=== PATIENT | male | born 1970 | race African-American/Black ===

== ENCOUNTER 2019-02-07 12:24 | Inpatient (IN) | payer OTHER ==
[2019-02-07] MEDS ORDERED: MAGNESIUM HYDROX 2400MG/30ML ORAL SUSPENSION 30 ML CUP PO PRN (15:35)
[2019-02-07] MEDS ORDERED: MAG HYDROX/AL HYDROX/SIMETH 30 ML UNIT-DOSE CUP PO PRN (15:35)
[2019-02-07] MEDS ORDERED: BISMUTH SUBSALICYLATE 524 MG/30 ML UD PO PRN (15:35)
[2019-02-07] MEDS ORDERED: NICOTINE POLACRILEX 2 MG GUM BUC PRN (15:35)
[2019-02-07] MEDS ORDERED: MENTHOL/PHENOL 1 EACH UD MM PRN (15:35)
[2019-02-07] MEDS ORDERED: ACETAMINOPHEN 325 MG TABLET (FP) PO PRN (15:35)
[2019-02-07] MEDS ORDERED: METHOCARBAMOL 500 MG TABLET PO PRN (15:35)
[2019-02-07] MEDS ORDERED: MAGNESIUM CITRATE 300 ML BOTTLE PO PRN (15:35)
[2019-02-07] MEDS ORDERED: hydrOXYzine PAMOATE 25 MG CAPSULE (FP) PO PRN (15:35)
[2019-02-07] MEDS ORDERED: IBUPROFEN 400 MG TABLET (FP) PO PRN (15:35)
--- NOTE | 2019-02-07 15:35 | HP ---
CIWA Score Nausea/Vomitin Muscle Tremors: 1-None Visible, but [place] Anxiety: 2 Agitation: 0-Normal Activity Paroxysmal Sweats: 1-Minimal Palms Moist Orientation: 0-Oriented Tacttile Disturbances: 1-Very Mild Itch/Numbness Auditory Disturbances: 0-None Visual Disturbances: 2-Mild Sensitivity Headache: 2-Mild CIWA-Ar Total Score: 12 - Admission Criteria OASAS Guidelines: Admission for Medically Managed Detox: Requires at least one of the followin. CIWA greater than 12 2. Seizures within the past 24 hours 3. Delirium tremens within the past 24 hours 4. Hallucinations within the past 24 hours 5. Acute intervention needed for co occurring medical disorder 6. Acute intervention needed for co occurring psychiatric disorder 7. Severe withdrawal that cannot be handled at a lower level of care (continued vomiting, continued diarrhea, abnormal vital signs) requiring intravenous medication and/or fluids 8. Patient presents the following: CIWA greater than 12 Admission Criteria Met: Admission criteria met Admission ROS S - HPI Chief Complaint: alcohol withdrawal symptoms Allergies/Adverse Reactions: Allergies Allergy/AdvReac Type Severity Reaction Status Date / Time Penicillins Allergy Intermediate Rash Verified 02/07/19 13:38 History of Present Illness: Patient is a 48 yo male with hx of marijuana, cocaine and alcohol dependence is here for detox, patient was referred from Health system today. Patient was at [facility] 02/05/19 - 02/07/19 d/t auditory hallucinations, reports hx of bipolar and non-compliance with medications. PMHX: Anemia, bilateral glaucoma. Denies hx of seizures, reports hx of frequent ETOH black outs. Reports three years of sobriety with and relapsed six months ago. Last detox [facility] one month ago. Exam Limitations: No Limitations - Ebola screening Have you traveled outside of the country in the last 21 days: No (N) Have you had contact with anyone from an Ebola affected area: No Do you have a fever: No - Review of Systems Constitutional: Chills, Loss of Appetite, Changes in sleep EENT: reports: See HPI Respiratory: reports: Cough (x 1 week) Cardiac: reports: Palpitations GI: reports: Nausea, Poor Appetite, Vomiting : reports: No Symptoms Reported Musculoskeletal: reports: Back Pain Integumentary: reports: Dryness Neuro: reports: Headache Endocrine: reports: No Symptoms Reported Hematology: reports: Anemia Psychiatric: reports: Orientated x3, Anxious Other Systems: Reviewed and Negative Patient History - Patient Medical History Hx Anemia: Yes Hx Asthma: No Hx Chronic Obstructive Pulmonary Disease (COPD): No Hx Cancer: No Hx Cardiac Disorders: No Hx Congestive Heart Failure: No Hx Hypertension: No Hx Hypercholesterolemia: No Hx Pacemaker: No HX Cerebrovascular Accident: No Hx Seizures: No Hx Dementia: No Hx Diabetes: No Hx Gastrointestinal Disorders: No Hx Liver Disease: No Hx Genitourinary Disorders: No Hx Sexually Transmitted Disorders: Yes (Syphilis treated at 23 yo at [facility] ) Hx Renal Disease (ESRD): No Hx Thyroid Disease: No Hx Human Immunodeficiency Virus (HIV): No Hx Hepatitis C: No Hx Depression: No Hx Suicide Attempt: No Hx Bipolar Disorder: Yes Hx Schizophrenia: No - Patient Surgical History Past Surgical History: Yes Hx Neurologic Surgery: No Hx Cataract Extraction: No Hx Cardiac Surgery: No Hx Lung Surgery: No Hx Breast Surgery: No Hx Breast Biopsy: No Hx Abdominal Surgery: Yes (PERFORATED ULCER SX IN 2009) Hx Appendectomy: No Hx Cholecystectomy: No Hx Genitourinary Surgery: No Hx Section: No Hx Orthopedic Surgery: No Anesthesia Reaction: No - PPD History Previous Implant?: Yes Documented Results: Positive w/o proof PPD to be Administered?: No - Smoking Cessation Smoking history: Current every day smoker Have you smoked in the past 12 months: Yes Aproximately how many cigarettes per day: 10 Cigars Per Day: 0 Hx Chewing Tobacco Use: No Initiated information on smoking cessation: Yes 'Breaking Loose' booklet given: 02/07/19 - Substance & Tx. History Hx Alcohol Use: Yes Hx Substance Use: No Substance Use Type: Alcohol, Cocaine, Marijuana Hx Substance Use Treatment: Yes ([facility] one month ago) - Substances abused Alcohol Substance route: Inhalation Frequency: Daily Amount used: 1 PINT OF VODKA Age of first use: 13 Date of last use: 02/05/19 Cocaine Substance route: Smoking Frequency: Daily Amount used: $100 Age of first use: 21 Date of last use: 02/05/19 Marijuana/Hashish Substance route: Smoking Frequency: Daily Amount used: $50 Age of first use: 13 Date of last use: 02/05/19 Family Disease History - Family Disease History Family Disease History: Heart Disease: Father () Admission Physical Exam [facility] - Vital Signs Vital Signs: Vital Signs - 24 hr 02/07/19 13:33 Temperature 97.7 F Pulse Rate 69 Respiratory 19 Rate Blood Pressure 115/73 - Physical General Appearance: Yes: Appropriately Dressed, Thin, Sweating, Anxious HEENTM: Yes: EOMI, Hearing grossly Normal, Normal ENT Inspection, Normocephalic , Normal Voice, KAUSHIK, Pharynx Normal, Tm's normal Respiratory: Yes: Chest Non-Tender, Lungs Clear, Normal Breath Sounds, No Respiratory Distress, No Accessory Muscle Use Neck: Yes: Within Normal Limits Breast: Yes: Breast Exam Deferred Cardiology: Yes: Regular Rhythm, Regular Rate Abdominal: Yes: Normal Bowel Sounds, Non Tender, Flat Genitourinary: Yes: Within Normal Limits Back: Yes: Normal Inspection Musculoskeletal: Yes: full range of Motion, Gait Steady, Pelvis Stable, Back pain Extremities: Yes: Normal Capillary Refill, Normal Inspection, Normal Range of Motion, Non-Tender Neurological: Yes: montessori paraprofessional II-XII NML intact, Fully Oriented, Alert, Motor Strength 5/5 Integumentary: Yes: Normal Color, Warm, Diaphoresis Lymphatic: Yes: Within Normal Limits - Diagnostic (1) Cannabis dependence Current Visit: Yes Status: Acute (2) Back pain Current Visit: Yes Status: Acute Qualifiers: Back pain location: low back pain (3) Psychiatric disorder Current Visit: Yes Status: Suspected (4) Cocaine dependence Current Visit: Yes Status: Active (5) Alcohol dependence with withdrawal Current Visit: Yes Status: Acute Qualifiers: Complication of substance-induced condition: uncomplicated Qualified Code(s ): F10.230 - Alcohol dependence with withdrawal, uncomplicated (6) Nicotine dependence Current Visit: Yes Status: Acute Qualifiers: Nicotine product type: cigarettes (7) Glaucoma Current Visit: Yes Status: Chronic Cleared for Admission [facility] - Detox or Rehab [facility] Level of Care: Medically Managed Detox Regimen/Protocol: Librium Breathalyzer - Breathalyzer Breathalyzer: 0 Urine Drug Screen - Test Device Lot number: [id number] Expiration date: 11/02/20 - Control Is test valid?: Yes - Results Drug screen NEGATIVE: No Urine drug screen results: BZO-Benzodiazepines Inpatient Rehab Admission - Rehab Decision to Admit Inpatient rehab admission?: No
[2019-02-07] MEDS ORDERED: chlordiazePOXIDE HCL 25 MG CAPSULE PO PRN (15:46)
[2019-02-07 16:37] LABS: ALBUMIN 3.6 g/dl (3.4-5.0); BILIRUBIN,TOTAL 0.3 mg/dL (0.2-1); CALCIUM 9.3 mg/dL (8.5-10.1); CREATININE 1.2 mg/dL (0.55-1.3); POTASSIUM 4.4 mmol/L (3.5-5.1); TOT PROT 7.4 g/dl (6.4-8.2)
[2019-02-07 16:41] LABS: HEMATOCRIT 44.5 % (35.4-49); HEMOGLOBIN 14.6 GM/dL (11.7-16.9); MCH 30.1 pg (25.7-33.7); MCHC 32.8 g/dl (32.0-35.9); MEAN CELL VOLUME 91.9 fl (80-96); MEAN PLT VOLUME 9.2 fl (7.5-11.1); PLATELET COUNT 172 K/MM3 (134-434); RBC 4.84 M/mm3 (4.00-5.60); RDW 14.4 % (11.9-15.9); WHITE BLOOD COUNT 5.1 K/mm3 (4.0-10.0)
[2019-02-07] MEDS: TIMOLOL 0.5% OPHTHALMIC SOL 5 ML BOTTLE OU SCH (21:13)
[2019-02-07] MEDS: THIAMINE HCL 100 MG TABLET (FP) PO SCH (21:13)
[2019-02-07] MEDS: DORZOLAMIDE 2% HCL OPHTHALMIC SOLUTION 10 ML BOTTLE OU SCH (21:13)
[2019-02-07] MEDS: BRIMONIDINE TARTRATE 0.1% OPHTHALMIC 5 ML BOTTLE OU SCH (21:13)
[2019-02-07] MEDS ORDERED: PATIENT'S OWN MEDICATION (NON-FORMULARY) (Dorzolamide Hcl/Timolol Maleat [Cosopt Eye Drops OU SCH (22:00)
[2019-02-07] MEDS ORDERED: chlordiazePOXIDE HCL 25 MG CAPSULE PO SCH (23:00)
[2019-02-07] MEDS: LATANOPROST 0.005% OPHTH SOLN 2.5ML BOTTLE OU SCH (23:11)
[2019-02-08] MEDS: BRIMONIDINE TARTRATE 0.1% OPHTHALMIC 5 ML BOTTLE OU SCH ×3 (07:42→21:58)
[2019-02-08] MEDS: NICOTINE 14 MG/24 HOURS TOPICAL PATCH TD SCH (09:41)
[2019-02-08] MEDS: PRENATAL VITAMINS W/ FOLIC ACID TABLET (FP) PO SCH (09:42)
[2019-02-08] MEDS: TIMOLOL 0.5% OPHTHALMIC SOL 5 ML BOTTLE OU SCH ×2 (09:43→21:58)
[2019-02-08] MEDS: DORZOLAMIDE 2% HCL OPHTHALMIC SOLUTION 10 ML BOTTLE OU SCH ×2 (09:46→21:58)
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
--- NOTE | 2019-02-08 15:40 | EKG ---
Test Reason : Blood Pressure : / mmHG Vent. Rate : 061 BPM Atrial Rate : 061 BPM P-R Int : 156 ms QRS Dur : 088 ms QT Int : 378 ms P-R-T Axes : 067 069 063 degrees QTc Int : 380 ms SINUS RHYTHM WITH SINUS ARRHYTHMIA WITH OCCASIONAL PREMATURE VENTRICULAR COMPLEXES OTHERWISE NORMAL ECG NO PREVIOUS ECGS AVAILABLE Confirmed by DARON BLAIR MD ([id number]) on 02/08/2019 3:40:10 PM Referred By: Confirmed By:DARON BLAIR MD
[2019-02-08] MEDS: ARIPiprazole 10 MG TABLET PO SCH (16:34)
[2019-02-08] MEDS: BENZTROPINE MESYLATE 1 MG TABLET (FP) PO SCH (16:34)
[2019-02-08 19:14] LABS: URINE APPEARANCE CLEAR; URINE BILIRUBIN NEGATIVE (NEGATIVE); URINE COLOR YELLOW; URINE GLUCOSE (UA) NEGATIVE (NEGATIVE); URINE KETONE NEGATIVE (NEGATIVE); URINE LEUK ESTERASE NEGATIVE (NEGATIVE); URINE NITRITE NEGATIVE (NEGATIVE); URINE PROTEIN NEGATIVE (NEGATIVE); URINE UROBILINOGEN 0.2 mg/dL (0.2-1.0)
[2019-02-08] MEDS: DIVALPROEX SODIUM 500 MG TABLET E.C. PO SCH (21:57)
[2019-02-08] MEDS: THIAMINE HCL 100 MG TABLET (FP) PO SCH (21:57)
[2019-02-08] MEDS: LATANOPROST 0.005% OPHTH SOLN 2.5ML BOTTLE OU SCH (21:59)
[2019-02-08] MEDS ORDERED: chlordiazePOXIDE HCL 25 MG CAPSULE PO SCH (23:00)
[2019-02-09] MEDS: BRIMONIDINE TARTRATE 0.1% OPHTHALMIC 5 ML BOTTLE OU SCH ×3 (06:39→21:18)
[2019-02-09] MEDS: PRENATAL VITAMINS W/ FOLIC ACID TABLET (FP) PO SCH (10:10)
[2019-02-09] MEDS: BENZTROPINE MESYLATE 1 MG TABLET (FP) PO SCH (10:11)
[2019-02-09] MEDS: DORZOLAMIDE 2% HCL OPHTHALMIC SOLUTION 10 ML BOTTLE OU SCH ×2 (10:11→21:18)
[2019-02-09] MEDS: ARIPiprazole 10 MG TABLET PO SCH (10:11)
[2019-02-09] MEDS: DIVALPROEX SODIUM 500 MG TABLET E.C. PO SCH ×2 (10:11→21:17)
[2019-02-09] MEDS: TIMOLOL 0.5% OPHTHALMIC SOL 5 ML BOTTLE OU SCH ×2 (10:12→21:17)
[2019-02-09] MEDS: NICOTINE 14 MG/24 HOURS TOPICAL PATCH TD SCH (10:13)
[2019-02-09] MEDS: ACETAMINOPHEN 325 MG TABLET (FP) PO PRN (10:15)
[2019-02-09] MEDS: THIAMINE HCL 100 MG TABLET (FP) PO SCH (21:17)
[2019-02-09] MEDS: LATANOPROST 0.005% OPHTH SOLN 2.5ML BOTTLE OU SCH (21:18)
[2019-02-09] MEDS ORDERED: chlordiazePOXIDE HCL 10 MG CAPSULE PO SCH (23:00)
[2019-02-09] MEDS ORDERED: chlordiazePOXIDE HCL 10 MG CAPSULE PO PRN (23:00)
[2019-02-10] MEDS: BRIMONIDINE TARTRATE 0.1% OPHTHALMIC 5 ML BOTTLE OU SCH ×3 (06:13→21:28)
[2019-02-10] MEDS: BENZTROPINE MESYLATE 1 MG TABLET (FP) PO SCH (09:51)
[2019-02-10] MEDS: DIVALPROEX SODIUM 500 MG TABLET E.C. PO SCH ×2 (09:52→21:27)
[2019-02-10] MEDS: TIMOLOL 0.5% OPHTHALMIC SOL 5 ML BOTTLE OU SCH ×2 (09:52→21:28)
[2019-02-10] MEDS: PRENATAL VITAMINS W/ FOLIC ACID TABLET (FP) PO SCH (09:52)
[2019-02-10] MEDS: ARIPiprazole 10 MG TABLET PO SCH (09:52)
[2019-02-10] MEDS: DORZOLAMIDE 2% HCL OPHTHALMIC SOLUTION 10 ML BOTTLE OU SCH ×2 (09:52→21:27)
[2019-02-10] MEDS: NICOTINE 14 MG/24 HOURS TOPICAL PATCH TD SCH (09:52)
[2019-02-10] MEDS: LATANOPROST 0.005% OPHTH SOLN 2.5ML BOTTLE OU SCH (21:27)
[2019-02-10] MEDS: THIAMINE HCL 100 MG TABLET (FP) PO SCH (21:27)
[2019-02-10] MEDS: ACETAMINOPHEN 325 MG TABLET (FP) PO PRN (21:28)
[2019-02-10] MEDS ORDERED: chlordiazePOXIDE HCL 10 MG CAPSULE PO SCH (23:00)
[2019-02-11] MEDS: BRIMONIDINE TARTRATE 0.1% OPHTHALMIC 5 ML BOTTLE OU SCH ×3 (06:52→21:14)
[2019-02-11] MEDS: DIVALPROEX SODIUM 500 MG TABLET E.C. PO SCH ×2 (09:43→21:14)
[2019-02-11] MEDS: DORZOLAMIDE 2% HCL OPHTHALMIC SOLUTION 10 ML BOTTLE OU SCH ×2 (09:43→21:14)
[2019-02-11] MEDS: PRENATAL VITAMINS W/ FOLIC ACID TABLET (FP) PO SCH (09:43)
[2019-02-11] MEDS: ARIPiprazole 10 MG TABLET PO SCH (09:43)
[2019-02-11] MEDS: BENZTROPINE MESYLATE 1 MG TABLET (FP) PO SCH (09:43)
[2019-02-11] MEDS: TIMOLOL 0.5% OPHTHALMIC SOL 5 ML BOTTLE OU SCH ×2 (09:43→21:14)
[2019-02-11] MEDS: NICOTINE 14 MG/24 HOURS TOPICAL PATCH TD SCH (09:44)
[2019-02-11] MEDS: THIAMINE HCL 100 MG TABLET (FP) PO SCH (21:14)
[2019-02-11] MEDS: LATANOPROST 0.005% OPHTH SOLN 2.5ML BOTTLE OU SCH (21:14)
[2019-02-11] MEDS: MELATONIN 5 MG TABLETS PO PRN (21:15)
[2019-02-12] MEDS: BRIMONIDINE TARTRATE 0.1% OPHTHALMIC 5 ML BOTTLE OU SCH ×3 (06:00→21:12)
[2019-02-12] MEDS: DORZOLAMIDE 2% HCL OPHTHALMIC SOLUTION 10 ML BOTTLE OU SCH ×2 (10:01→21:12)
[2019-02-12] MEDS: PRENATAL VITAMINS W/ FOLIC ACID TABLET (FP) PO SCH (10:01)
[2019-02-12] MEDS: TIMOLOL 0.5% OPHTHALMIC SOL 5 ML BOTTLE OU SCH ×2 (10:01→21:12)
[2019-02-12] MEDS: ARIPiprazole 10 MG TABLET PO SCH (10:01)
[2019-02-12] MEDS: NICOTINE 14 MG/24 HOURS TOPICAL PATCH TD SCH (10:01)
[2019-02-12] MEDS: DIVALPROEX SODIUM 500 MG TABLET E.C. PO SCH ×2 (10:01→21:11)
[2019-02-12] MEDS: BENZTROPINE MESYLATE 1 MG TABLET (FP) PO SCH (10:02)
[2019-02-12] MEDS: THIAMINE HCL 100 MG TABLET (FP) PO SCH (21:11)
[2019-02-12] MEDS: LATANOPROST 0.005% OPHTH SOLN 2.5ML BOTTLE OU SCH (21:11)
[2019-02-13] MEDS: BRIMONIDINE TARTRATE 0.1% OPHTHALMIC 5 ML BOTTLE OU SCH ×3 (07:25→21:15)
[2019-02-13] MEDS: TIMOLOL 0.5% OPHTHALMIC SOL 5 ML BOTTLE OU SCH ×2 (10:24→21:15)
[2019-02-13] MEDS: DORZOLAMIDE 2% HCL OPHTHALMIC SOLUTION 10 ML BOTTLE OU SCH ×2 (10:24→21:15)
[2019-02-13] MEDS: ARIPiprazole 10 MG TABLET PO SCH (10:24)
[2019-02-13] MEDS: PRENATAL VITAMINS W/ FOLIC ACID TABLET (FP) PO SCH (10:24)
[2019-02-13] MEDS: NICOTINE 14 MG/24 HOURS TOPICAL PATCH TD SCH (10:24)
[2019-02-13] MEDS: DIVALPROEX SODIUM 500 MG TABLET E.C. PO SCH ×2 (10:24→21:14)
[2019-02-13] MEDS: BENZTROPINE MESYLATE 1 MG TABLET (FP) PO SCH (10:24)
[2019-02-13] MEDS: MELATONIN 5 MG TABLETS PO PRN (21:14)
[2019-02-13] MEDS: THIAMINE HCL 100 MG TABLET (FP) PO SCH (21:14)
[2019-02-13] MEDS: LATANOPROST 0.005% OPHTH SOLN 2.5ML BOTTLE OU SCH (21:15)
[2019-02-14] MEDS: BRIMONIDINE TARTRATE 0.1% OPHTHALMIC 5 ML BOTTLE OU SCH ×3 (07:53→21:11)
[2019-02-14] MEDS: TIMOLOL 0.5% OPHTHALMIC SOL 5 ML BOTTLE OU SCH ×2 (09:47→21:11)
[2019-02-14] MEDS: DORZOLAMIDE 2% HCL OPHTHALMIC SOLUTION 10 ML BOTTLE OU SCH ×2 (09:47→21:11)
[2019-02-14] MEDS: PRENATAL VITAMINS W/ FOLIC ACID TABLET (FP) PO SCH (09:48)
[2019-02-14] MEDS: BENZTROPINE MESYLATE 1 MG TABLET (FP) PO SCH (09:48)
[2019-02-14] MEDS: ARIPiprazole 10 MG TABLET PO SCH (09:48)
[2019-02-14] MEDS: DIVALPROEX SODIUM 500 MG TABLET E.C. PO SCH ×2 (09:48→21:10)
[2019-02-14] MEDS: NICOTINE 14 MG/24 HOURS TOPICAL PATCH TD SCH (09:49)
[2019-02-14] MEDS: THIAMINE HCL 100 MG TABLET (FP) PO SCH (21:10)
[2019-02-14] MEDS: LATANOPROST 0.005% OPHTH SOLN 2.5ML BOTTLE OU SCH (21:10)
[2019-02-14] MEDS: MELATONIN 5 MG TABLETS PO PRN (21:11)
[2019-02-15] MEDS: BRIMONIDINE TARTRATE 0.1% OPHTHALMIC 5 ML BOTTLE OU SCH ×3 (06:39→21:19)
[2019-02-15] MEDS: PRENATAL VITAMINS W/ FOLIC ACID TABLET (FP) PO SCH (10:07)
[2019-02-15] MEDS: BENZTROPINE MESYLATE 1 MG TABLET (FP) PO SCH (10:07)
[2019-02-15] MEDS: ARIPiprazole 10 MG TABLET PO SCH (10:07)
[2019-02-15] MEDS: DORZOLAMIDE 2% HCL OPHTHALMIC SOLUTION 10 ML BOTTLE OU SCH ×2 (10:07→21:19)
[2019-02-15] MEDS: DIVALPROEX SODIUM 500 MG TABLET E.C. PO SCH ×2 (10:07→21:18)
[2019-02-15] MEDS: TIMOLOL 0.5% OPHTHALMIC SOL 5 ML BOTTLE OU SCH ×2 (10:08→21:19)
[2019-02-15] MEDS: NICOTINE 14 MG/24 HOURS TOPICAL PATCH TD SCH (10:08)
[2019-02-15] MEDS: THIAMINE HCL 100 MG TABLET (FP) PO SCH (21:18)
[2019-02-15] MEDS: LATANOPROST 0.005% OPHTH SOLN 2.5ML BOTTLE OU SCH (21:20)
[2019-02-16] MEDS: BRIMONIDINE TARTRATE 0.1% OPHTHALMIC 5 ML BOTTLE OU SCH ×3 (07:14→21:15)
[2019-02-16] MEDS: BENZTROPINE MESYLATE 1 MG TABLET (FP) PO SCH (09:59)
[2019-02-16] MEDS: PRENATAL VITAMINS W/ FOLIC ACID TABLET (FP) PO SCH (09:59)
[2019-02-16] MEDS: ARIPiprazole 10 MG TABLET PO SCH (09:59)
[2019-02-16] MEDS: DIVALPROEX SODIUM 500 MG TABLET E.C. PO SCH ×2 (09:59→21:14)
[2019-02-16] MEDS: NICOTINE 14 MG/24 HOURS TOPICAL PATCH TD SCH (10:00)
[2019-02-16] MEDS: TIMOLOL 0.5% OPHTHALMIC SOL 5 ML BOTTLE OU SCH ×2 (10:00→21:14)
[2019-02-16] MEDS: DORZOLAMIDE 2% HCL OPHTHALMIC SOLUTION 10 ML BOTTLE OU SCH ×2 (10:01→21:14)
[2019-02-16] MEDS: THIAMINE HCL 100 MG TABLET (FP) PO SCH (21:14)
[2019-02-16] MEDS: LATANOPROST 0.005% OPHTH SOLN 2.5ML BOTTLE OU SCH (21:14)
[2019-02-16] MEDS: MELATONIN 5 MG TABLETS PO PRN (21:15)
[2019-02-17] MEDS: BRIMONIDINE TARTRATE 0.1% OPHTHALMIC 5 ML BOTTLE OU SCH ×3 (07:21→21:18)
[2019-02-17] MEDS: PRENATAL VITAMINS W/ FOLIC ACID TABLET (FP) PO SCH (09:50)
[2019-02-17] MEDS: ARIPiprazole 10 MG TABLET PO SCH (09:50)
[2019-02-17] MEDS: DIVALPROEX SODIUM 500 MG TABLET E.C. PO SCH ×2 (09:50→21:17)
[2019-02-17] MEDS: BENZTROPINE MESYLATE 1 MG TABLET (FP) PO SCH (09:50)
[2019-02-17] MEDS: TIMOLOL 0.5% OPHTHALMIC SOL 5 ML BOTTLE OU SCH ×2 (09:51→21:20)
[2019-02-17] MEDS: NICOTINE 14 MG/24 HOURS TOPICAL PATCH TD SCH (09:52)
[2019-02-17] MEDS: DORZOLAMIDE 2% HCL OPHTHALMIC SOLUTION 10 ML BOTTLE OU SCH ×2 (09:52→21:19)
[2019-02-17] MEDS: THIAMINE HCL 100 MG TABLET (FP) PO SCH (21:17)
[2019-02-17] MEDS: MELATONIN 5 MG TABLETS PO PRN (21:17)
[2019-02-17] MEDS: LATANOPROST 0.005% OPHTH SOLN 2.5ML BOTTLE OU SCH (21:19)
[2019-02-18] MEDS: BRIMONIDINE TARTRATE 0.1% OPHTHALMIC 5 ML BOTTLE OU SCH ×3 (06:43→21:22)
[2019-02-18] MEDS: BENZTROPINE MESYLATE 1 MG TABLET (FP) PO SCH (10:03)
[2019-02-18] MEDS: PRENATAL VITAMINS W/ FOLIC ACID TABLET (FP) PO SCH (10:03)
[2019-02-18] MEDS: TIMOLOL 0.5% OPHTHALMIC SOL 5 ML BOTTLE OU SCH ×2 (10:03→21:21)
[2019-02-18] MEDS: DORZOLAMIDE 2% HCL OPHTHALMIC SOLUTION 10 ML BOTTLE OU SCH ×2 (10:03→21:22)
[2019-02-18] MEDS: ARIPiprazole 10 MG TABLET PO SCH (10:03)
[2019-02-18] MEDS: DIVALPROEX SODIUM 500 MG TABLET E.C. PO SCH ×2 (10:03→21:21)
[2019-02-18] MEDS: NICOTINE 14 MG/24 HOURS TOPICAL PATCH TD SCH (10:03)
[2019-02-18] MEDS: THIAMINE HCL 100 MG TABLET (FP) PO SCH (21:21)
[2019-02-18] MEDS: MELATONIN 5 MG TABLETS PO PRN (21:21)
[2019-02-18] MEDS: LATANOPROST 0.005% OPHTH SOLN 2.5ML BOTTLE OU SCH (21:22)
[2019-02-19] MEDS: BRIMONIDINE TARTRATE 0.1% OPHTHALMIC 5 ML BOTTLE OU SCH ×3 (07:19→21:07)
[2019-02-19 07:20] VITALS: TEMP 97.9
[2019-02-19] MEDS: TIMOLOL 0.5% OPHTHALMIC SOL 5 ML BOTTLE OU SCH ×2 (10:25→21:07)
[2019-02-19] MEDS: ARIPiprazole 10 MG TABLET PO SCH (10:26)
[2019-02-19] MEDS: DORZOLAMIDE 2% HCL OPHTHALMIC SOLUTION 10 ML BOTTLE OU SCH ×2 (10:26→21:07)
[2019-02-19] MEDS: BENZTROPINE MESYLATE 1 MG TABLET (FP) PO SCH (10:26)
[2019-02-19] MEDS: PRENATAL VITAMINS W/ FOLIC ACID TABLET (FP) PO SCH (10:26)
[2019-02-19] MEDS: DIVALPROEX SODIUM 500 MG TABLET E.C. PO SCH ×2 (10:26→21:07)
[2019-02-19] MEDS: NICOTINE 14 MG/24 HOURS TOPICAL PATCH TD SCH (10:27)
--- NOTE | 2019-02-19 17:20 | PN ---
[facility] Progress Note Note: Patient is scheduled for discharge tomorrow. Scripts for 30 days supply of medications(Abilify 10 mg/day, Cogentin 0.5 mg/day, Depakote 500 mg/bid) will be electronically transmitted to [facility] at [address] [place] [address]
[2019-02-19] MEDS: LATANOPROST 0.005% OPHTH SOLN 2.5ML BOTTLE OU SCH (21:07)
[2019-02-19] MEDS: THIAMINE HCL 100 MG TABLET (FP) PO SCH (21:07)
[2019-02-19] MEDS: MELATONIN 5 MG TABLETS PO PRN (21:08)
[2019-02-20] MEDS: BRIMONIDINE TARTRATE 0.1% OPHTHALMIC 5 ML BOTTLE OU SCH ×3 (06:54→21:12)
[2019-02-20] MEDS: BENZTROPINE MESYLATE 1 MG TABLET (FP) PO SCH (09:52)
[2019-02-20] MEDS: DIVALPROEX SODIUM 500 MG TABLET E.C. PO SCH ×2 (09:52→21:12)
[2019-02-20] MEDS: ARIPiprazole 10 MG TABLET PO SCH (09:52)
[2019-02-20] MEDS: PRENATAL VITAMINS W/ FOLIC ACID TABLET (FP) PO SCH (09:52)
[2019-02-20] MEDS: NICOTINE 14 MG/24 HOURS TOPICAL PATCH TD SCH (09:53)
[2019-02-20] MEDS: DORZOLAMIDE 2% HCL OPHTHALMIC SOLUTION 10 ML BOTTLE OU SCH ×2 (09:54→21:13)
[2019-02-20] MEDS: TIMOLOL 0.5% OPHTHALMIC SOL 5 ML BOTTLE OU SCH ×2 (09:54→21:12)
--- NOTE | 2019-02-20 13:59 | PN ---
[facility] Progress Note (SOAP) Subjective: PT COMPLETED REHAB AND SCHEDULED TO DISCHARGE TOMORROW. PT MET WITH HIS COUNSELOR AND HAS BEEN REFERRED FOR CD AFTERCARE TO [facility] [employer]PT REPORTS HE HAS A PCP DR BANEGAS IN [facility] [place], [place] FOR MEDICAL MANAGEMENT. PT REQUESTS COURTESY RX BELOW FOR GLAUCOMA WHICH WAS SENT ELECTRONICALLY TO [facility] FOR GROCERY MANAGER. PT IS ALERT O X 3. DENIES S/H IDEATION. Objective: 02/20/19 13:57 Vital Signs 02/20/19 06:43 Temperature 97.9 F Pulse Rate 66 Respiratory 18 Rate Blood Pressure 110/71 Laboratory Tests 02/07/19 02/07/19 02/07/19 15:45 15:45 15:45 WBC 5.1 RBC 4.84 Hgb 14.6 Hct 44.5 MCV 91.9 MCH 30.1 MCHC 32.8 RDW 14.4 Plt Count 172 MPV 9.2 Sodium 138 Potassium 4.4 Chloride 103 Carbon Dioxide 32 Anion Gap 4 L BUN 16 Creatinine 1.2 Est GFR (CKD-EPI)AfAm 81.80 Est GFR (CKD-EPI)NonAf 70.58 Random Glucose 93 Calcium 9.3 Total Bilirubin 0.3 AST 11 L ALT 30 Alkaline Phosphatase 76 Total Protein 7.4 Albumin 3.6 Urine Color Urine Appearance Urine pH Ur Specific [place] Urine Protein Urine Glucose (UA) Urine Ketones Urine Blood Urine Nitrite Urine Bilirubin Urine Urobilinogen Ur Leukocyte Esterase Valproic Acid 58.3 RPR Titer 02/07/19 02/08/19 15:45 14:50 WBC RBC Hgb Hct MCV MCH MCHC RDW Plt Count MPV Sodium Potassium Chloride Carbon Dioxide Anion Gap BUN Creatinine Est GFR (CKD-EPI)AfAm Est GFR (CKD-EPI)NonAf Random Glucose Calcium Total Bilirubin AST ALT Alkaline Phosphatase Total Protein Albumin Urine Color Yellow Urine Appearance Clear Urine pH 7.0 D Ur Specific [place] 1.017 Urine Protein Negative Urine Glucose (UA) Negative Urine Ketones Negative Urine Blood Negative Urine Nitrite Negative Urine Bilirubin Negative Urine Urobilinogen 0.2 Ur Leukocyte Esterase Negative Valproic Acid RPR Titer Nonreactive Home Medications Medication Instructions Recorded Aripiprazole [Abilify] 10 mg PO DAILY 02/05/13 Divalproex [Depakote] 500 mg PO TID 02/05/13 Aripiprazole [Abilify -] 10 mg PO DAILY #0 tablet 02/09/13 Benztropine Mesylate [Cogentin -] 0.5 mg PO DAILY #0 tablet 02/09/13 Divalproex [Depakote -] 500 mg PO TID #0 tablet.ec 02/09/13 Aripiprazole [Abilify -] 10 mg PO DAILY #30 tablet 06/23/16 Aripiprazole [Abilify -] 10 mg PO DAILY #30 tablet 02/19/19 Benztropine Mesylate [Cogentin -] 0.5 mg PO DAILY #30 tablet 02/19/19 Divalproex [Depakote -] 500 mg PO BID #60 tablet.ec 02/19/19 Brimonidine Tartrate [Alphagan P 1 drop OU TID #1 drops 02/21/19 0.1% -] Dorzolamide HCl/Timolol Maleat 1 drop OP BID #1 drops 02/21/19 [Cosopt Eye Drops] Latanoprost 0.005% Eye Drops 1 drop OU HS #1 drops 02/21/19 [Xalatan 0.005% Eye Drops -] Assessment: 02/20/19 13:58 NAD MEDICALLY STABLE Plan: January/ ON 02/21/19. FOLLOW UP WITH CD AFTERCARE RECOMMENDATION. FOLLOW UP WITH PCP FOR MEDICAL MANAGEMENT WITHIN 1-2 WEEKS AFTER DISCHARGE.
[2019-02-20] MEDS: THIAMINE HCL 100 MG TABLET (FP) PO SCH (21:13)
[2019-02-20] MEDS: LATANOPROST 0.005% OPHTH SOLN 2.5ML BOTTLE OU SCH (21:13)
[2019-02-20] MEDS: MELATONIN 5 MG TABLETS PO PRN (21:13)
[2019-02-21 06:37] VITALS: BP 111/64; PULSE 65
[2019-02-21] MEDS: BRIMONIDINE TARTRATE 0.1% OPHTHALMIC 5 ML BOTTLE OU SCH (06:45)
[2019-02-21] MEDS: DIVALPROEX SODIUM 500 MG TABLET E.C. PO SCH (09:54)
[2019-02-21] MEDS: PRENATAL VITAMINS W/ FOLIC ACID TABLET (FP) PO SCH (09:54)
[2019-02-21] MEDS: BENZTROPINE MESYLATE 1 MG TABLET (FP) PO SCH (09:54)
[2019-02-21] MEDS: ARIPiprazole 10 MG TABLET PO SCH (09:54)
[2019-02-21] MEDS: TIMOLOL 0.5% OPHTHALMIC SOL 5 ML BOTTLE OU SCH (09:55)
[2019-02-21] MEDS: NICOTINE 14 MG/24 HOURS TOPICAL PATCH TD SCH (09:56)
[2019-02-21] MEDS: DORZOLAMIDE 2% HCL OPHTHALMIC SOLUTION 10 ML BOTTLE OU SCH (09:56)
--- NOTE | 2019-02-21 11:35 | PN ---
[facility] Progress Note Note: PT D/C'D TODAY PER SCHEDULE.ALERT O X 3. AMBULATES WITH [facility]ADY GA[facility]. D/W PT TO FOLLOW UP WITH AFTERCARE RECOMMENDATIONS. Vital Signs - 24 hr 02/21/19 02/21/19 02/21/19 00:30 03:30 06:36 Temperature 97.9 F Pulse Rate 65 Respiratory 18 18 16 Rate Blood Pressure 111/64
== END 2019-02-21 11:10 | disposition home or self-care (01) | DRG 772 ==
LOC: YASAS 12:24 → Y5N 18:32
PROVIDERS: ADMIT Neuromusculoskeletal Medicine & OMM; ATTEND Neuromusculoskeletal Medicine & OMM
PROC: HZ42ZZZ Group Counseling for Substance Abuse Treatment, Cognitive-Behavioral (ICD-10-PCS; principal; 2019-02-07)
DX: F10.230 Alcohol dependence with withdrawal, uncomplicated (principal); F14.20 Cocaine dependence, uncomplicated; F12.20 Cannabis dependence, uncomplicated; F17.210 Nicotine dependence, cigarettes, uncomplicated; F31.9 Bipolar disorder, unspecified; F25.9 Schizoaffective disorder, unspecified; F19.282 Other psychoactive substance dependence with psychoactive substance-induced sleep disorder; D50.9 Iron deficiency anemia, unspecified; H40.9 Unspecified glaucoma; M54.5 Low back pain; Z88.0 Allergy status to penicillin; Z87.438 Personal history of other diseases of male genital organs; Z59.0 Homelessness
CPT/HCPCS: 36415; 71046-TC-FY; 80053; 80164; 81003; 85027; 86593; 93005; 93010

== ENCOUNTER 2019-04-02 12:03 | Inpatient (IN) | payer OTHER ==
[2019-04-02 12:30] VITALS: BMI 25.0
--- NOTE | 2019-04-02 13:44 | HP ---
CIWA Score Nausea/Vomitin Muscle Tremors: 2 Anxiety: 2 Agitation: 2 Paroxysmal Sweats: 1-Minimal Palms Moist Orientation: 0-Oriented Tacttile Disturbances: 1-Very Mild Itch/Numbness Auditory Disturbances: 1-Very Mild Visual Disturbances: 0-None Headache: 2-Mild CIWA-Ar Total Score: 13 - Admission Criteria OASAS Guidelines: Admission for Medically Managed Detox: Requires at least one of the followin. CIWA greater than 12 2. Seizures within the past 24 hours 3. Delirium tremens within the past 24 hours 4. Hallucinations within the past 24 hours 5. Acute intervention needed for co occurring medical disorder 6. Acute intervention needed for co occurring psychiatric disorder 7. Severe withdrawal that cannot be handled at a lower level of care (continued vomiting, continued diarrhea, abnormal vital signs) requiring intravenous medication and/or fluids 8. Admission ROS [facility] - HPI Chief Complaint: i need help to stop drinking alcohol,cocaine and crystal met Allergies/Adverse Reactions: Allergies Allergy/AdvReac Type Severity Reaction Status Date / Time Penicillins Allergy Intermediate Rash Verified 04/02/19 12:08 History of Present Illness: this 48 years old male with alcohol,cocaine and crystal met,seeking detox, withdrawal symptom, multiple admissions in detox,and rehab,last [facility] 02/07/19 to 02/21/19 syncope alcohol related no seizure glaucoma both eyes bipolar disorder low back pain s/p surgery of back longest sobriety 2 years plan for relocate after detox Exam Limitations: No Limitations - Ebola screening Have you traveled outside of the country in the last 21 days: No Have you had contact with anyone from an Ebola affected area: No Do you have a fever: No - Review of Systems Constitutional: Loss of Appetite, Malaise, Night Sweats, Changes in sleep EENT: reports: Nose Congestion, Other (glaucoma both eyes non compliance) Respiratory: reports: No Symptoms reported Cardiac: reports: No Symptoms Reported GI: reports: Diarrhea, Nausea, Poor Appetite : reports: No Symptoms Reported Musculoskeletal: reports: Back Pain, Muscle Pain Integumentary: reports: Dryness Neuro: reports: Headache, Tremors Endocrine: reports: No Symptoms Reported Hematology: reports: No Symptoms Reported Psychiatric: reports: No Sypmtoms Reported, Judgement Intact, Mood/Affect Appropiate, Orientated x3, other (bipolar disorder) Other Systems: Reviewed and Negative Patient History - Patient Medical History Hx Anemia: Yes Hx Asthma: No Hx Chronic Obstructive Pulmonary Disease (COPD): No Hx Cancer: No Hx Cardiac Disorders: No Hx Congestive Heart Failure: No Hx Hypertension: No Hx Hypercholesterolemia: No Hx Pacemaker: No HX Cerebrovascular Accident: No Hx Seizures: No Hx Dementia: No Hx Diabetes: No Hx Gastrointestinal Disorders: No Hx Liver Disease: No Hx Genitourinary Disorders: No Hx Sexually Transmitted Disorders: Yes (Syphilis treated at 23 yo at [facility] ) Hx Renal Disease (ESRD): No Hx Thyroid Disease: No Hx Human Immunodeficiency Virus (HIV): No (last 02/21 negative) Hx Hepatitis C: No Hx Depression: Yes Hx Suicide Attempt: No Hx Bipolar Disorder: Yes (on meds) Hx Schizophrenia: No Other Medical History: no suicidal,no homicidal,back surgery in 2018 - Patient Surgical History Past Surgical History: Yes Hx Neurologic Surgery: No Hx Cataract Extraction: No Hx Cardiac Surgery: No Hx Lung Surgery: No Hx Breast Surgery: No Hx Breast Biopsy: No Hx Abdominal Surgery: Yes (PERFORATED ULCER SX IN 2009) Hx Appendectomy: No Hx Cholecystectomy: No Hx Genitourinary Surgery: No Hx Section: No Hx Orthopedic Surgery: No Other Surgical History: surgery of back in 03/22 Anesthesia Reaction: No - PPD History Documented Results: Positive w/proof PPD to be Administered?: No - Smoking Cessation Smoking history: Current every day smoker Have you smoked in the past 12 months: Yes Aproximately how many cigarettes per day: 10 Cigars Per Day: 0 Hx Chewing Tobacco Use: No Initiated information on smoking cessation: Yes 'Breaking Loose' booklet given: 04/03/19 - Substance & Tx. History Hx Alcohol Use: Yes Hx Substance Use: Yes Substance Use Type: Alcohol, Cocaine, Marijuana Hx Substance Use Treatment: Yes (rehab [facility] 02/07/19 to 02/21/19) - Substances abused Alcohol Substance route: Inhalation Frequency: Daily Amount used: 6 pack of beer 12 ozs Age of first use: 13 Date of last use: 04/01/19 Cocaine Substance route: Smoking Frequency: Daily Amount used: $100 Age of first use: 13 Date of last use: 03/31/19 Marijuana/Hashish Substance route: Smoking Frequency: Daily Amount used: $50 Age of first use: 13 Date of last use: 02/05/19 Crystal meth Substance route: Smoking Frequency: 1-3 times last 30 days Amount used: $160 Age of first use: 33 Date of last use: 03/31/19 Family Disease History - Family Disease History Family Disease History: Heart Disease: Father () Admission Physical Exam [facility] - Vital Signs Vital Signs: Vital Signs - 24 hr 04/02/19 12:06 Temperature 97 F L Pulse Rate 55 L Respiratory 16 Rate Blood Pressure 97/67 - Physical General Appearance: Yes: Moderate Distress, Tremorous, Irritable, Sweating, Anxious HEENTM: Yes: Normal ENT Inspection (glaucoma both eyes), KAUSHIK, Pharynx Normal Respiratory: Yes: Lungs Clear, Normal Breath Sounds, No Respiratory Distress Neck: Yes: Within Normal Limits, Supple, Trachea in good position Breast: Yes: Within Normal Limits Cardiology: Yes: Within Normal Limits, Regular Rhythm, Regular Rate, S1, S2 Abdominal: Yes: Within Normal Limits, Normal Bowel Sounds, Flat, Soft, Surgical Scar (midline epigastric scar) Genitourinary: Yes: Within Normal Limits Back: Yes: Muscle Spasm, Surgical Scar Musculoskeletal: Yes: Back pain, Muscle Pain Extremities: Yes: Normal Range of Motion, Tremors Neurological: Yes: ticket seller II-XII NML intact, Fully Oriented, Alert, Motor Strength 5/5 Integumentary: Yes: Dry Lymphatic: Yes: Within Normal Limits - Diagnostic (1) Alcohol dependence with withdrawal Current Visit: No Status: Acute Qualifiers: Complication of substance-induced condition: uncomplicated Qualified Code(s ): F10.230 - Alcohol dependence with withdrawal, uncomplicated (2) Weight decreased Current Visit: No Status: Active (3) Bipolar disorder Current Visit: No Status: Chronic Comment: By history. (4) Cannabis dependence Current Visit: No Status: Chronic (5) Cocaine dependence Current Visit: No Status: Chronic (6) Glaucoma Current Visit: No Status: Chronic (7) Nicotine dependence Current Visit: No Status: Chronic Qualifiers: Nicotine product type: cigarettes Substance use status: uncomplicated Qualified Code(s): F17.210 - Nicotine dependence, cigarettes, uncomplicated (8) PPD positive Current Visit: No Status: Resolved (9) History of back surgery Current Visit: Yes Status: Acute Cleared for Admission [facility] - Detox or Rehab [facility] Level of Care: Medically Managed Detox Regimen/Protocol: Librium Breathalyzer - Breathalyzer Breathalyzer: 0 Urine Drug Screen - Test Device Lot number: [id number] Expiration date: 01/02/21 - Control Is test valid?: Yes - Results Drug screen NEGATIVE: No Urine drug screen results: JACQUELYN-Cocaine, BZO-Benzodiazepines Inpatient Rehab Admission - Rehab Decision to Admit Inpatient rehab admission?: No
[2019-04-02] MEDS ORDERED: MELATONIN 5 MG TABLETS PO PRN (13:56)
[2019-04-02] MEDS ORDERED: MENTHOL/PHENOL 1 EACH UD MM PRN (13:56)
[2019-04-02] MEDS ORDERED: BISMUTH SUBSALICYLATE 262 MG/15 ML BTL PO PRN (13:56)
[2019-04-02] MEDS ORDERED: ACETAMINOPHEN 325 MG TABLET (FP) PO PRN ×2 (13:56)
[2019-04-02] MEDS ORDERED: MAGNESIUM CITRATE 300 ML BOTTLE PO PRN (13:56)
[2019-04-02] MEDS ORDERED: chlordiazePOXIDE HCL 25 MG CAPSULE PO PRN (13:56)
[2019-04-02] MEDS ORDERED: IBUPROFEN 400 MG TABLET (FP) PO PRN (13:56)
[2019-04-02] MEDS ORDERED: hydrOXYzine HCL 25 MG TABLET (FP) PO PRN (13:56)
[2019-04-02] MEDS ORDERED: MAGNESIUM HYDROX 2400MG/30ML ORAL SUSPENSION 30 ML CUP PO PRN (13:56)
[2019-04-02] MEDS ORDERED: METHOCARBAMOL 500 MG TABLET PO PRN (13:56)
[2019-04-02] MEDS ORDERED: MAG HYDROX/AL HYDROX/SIMETH 30 ML UNIT-DOSE CUP PO PRN (13:56)
[2019-04-02 16:26] LABS: HEMATOCRIT 41.7 % (35.4-49); HEMOGLOBIN 13.9 GM/dL (11.7-16.9); MCHC 33.3 g/dl (32.0-35.9); MEAN CELL VOLUME 93.1 fl (80-96); MEAN PLT VOLUME 8.7 fl (7.5-11.1); PLATELET COUNT 218 K/MM3 (134-434); RBC 4.48 M/mm3 (4.00-5.60); RDW 14.7 % (11.9-15.9); WHITE BLOOD COUNT 4.5 K/mm3 (4.0-10.0)
[2019-04-02 16:32] LABS: ALBUMIN 3.4 g/dl (3.4-5.0); BILIRUBIN,TOTAL 0.2 mg/dL (0.2-1); BLOOD UREA NITROGEN 14.4 mg/dL (7-18); CALCIUM 8.9 mg/dL (8.5-10.1); CREATININE 1.2 mg/dL (0.55-1.3); POTASSIUM 4.2 mmol/L (3.5-5.1); TOT PROT 6.5 g/dl (6.4-8.2)
[2019-04-02] MEDS: DORZOLAMIDE 2% HCL OPHTHALMIC SOLUTION 10 ML BOTTLE OU SCH ×2 (17:45→22:59)
[2019-04-02] MEDS: BRIMONIDINE TARTRATE 0.1% OPHTHALMIC 5 ML BOTTLE OU SCH ×2 (17:45→22:59)
[2019-04-02] MEDS: NICOTINE 21 MG/24 HOURS TOPICAL PATCH TD SCH (17:47)
[2019-04-02] MEDS: TIMOLOL 0.5% OPHTHALMIC SOL 5 ML BOTTLE OU SCH ×2 (20:50→22:17)
[2019-04-02] MEDS: chlordiazePOXIDE HCL 25 MG CAPSULE PO SCH (22:16)
[2019-04-02] MEDS: THIAMINE HCL 100 MG TABLET (FP) PO SCH (22:16)
[2019-04-02] MEDS: LATANOPROST 0.005% OPHTH SOLN 2.5ML BOTTLE OU SCH (22:17)
[2019-04-03] MEDS: chlordiazePOXIDE HCL 25 MG CAPSULE PO SCH ×4 (05:26→22:00)
[2019-04-03] MEDS: BRIMONIDINE TARTRATE 0.1% OPHTHALMIC 5 ML BOTTLE OU SCH ×3 (05:27→21:49)
[2019-04-03] MEDS: DORZOLAMIDE 2% HCL OPHTHALMIC SOLUTION 10 ML BOTTLE OU SCH ×3 (05:27→21:50)
[2019-04-03] MEDS: TIMOLOL 0.5% OPHTHALMIC SOL 5 ML BOTTLE OU SCH ×2 (05:27→21:50)
--- NOTE | 2019-04-03 09:50 | CONSULT ---
[facility] Psychiatric Consult - Data Date of interview: 04/03/19 Admission source: [facility] Identifying data: Patient is a 48 year old single male, without children, unemployed, homelesss, and is supported by disability benefits. This is one of multiple admissions for patient. Patient admitted to for alcohol and cocaine dependence. Substance Abuse History: Substance & Tx. History. Hx Alcohol Use: Yes. Hx Substance Use: Yes. Substance Use Type: Alcohol, Cocaine, Marijuana. Hx Substance Use Treatment: Yes (rehab [facility] 02/07/19 to 02/21/19). - Substances abused. Alcohol. Substance route: Inhalation. Frequency: Daily. Amount used: 6 pack of beer 12 ozs. Age of first use: 13. Date of last use: . Cocaine. Substance route: Smoking. Frequency: Daily. Amount used: $ 100. Age of first use: 13. Date of last use: 03/31/19. Marijuana/Hashish. Substance route: Smoking. Frequency: Daily. Amount used: $50. Age of first use: 13. Date of last use: 02/05/19. Crystal meth. Substance route: Smoking. Frequency: 1-3 times last 30 days. Amount used: $160. Age of first use: 33. Date of last use: 03/31/19 Medical History: Significant for glaucoma both eyes, history of anemia, treatment for PPD+, syphilis at age 23, surgeries for perforated ulcer and glaucoma right eye Psychiatric History: Patient's first psychiatric contact was at [facility] inpatient psychiatric unit at 14 years of age after endorsing auditory hallucinations and having urges to hurt himself. States his most recent psychiatric hospitalization was last year at [facility] for suicidal/ homicidal ideation. He reports additional psychiatric hospitalizations at [facility] and [facility]. Patient reports h/o mood instability and auditory hallucinations. Diagnosis of Bipolar disorder. Denies h /o suicide attempt. Patient was seen by Dr. Wilkerson last month and was resumed on abilify 10mg + Depakote 500mg BID + Cogentin 0.5mg. Patient reports medication nonadherence since discharge on 02/21/19 but is agreeable in resuming medications. Mr. Orozco denies current outpatient psychiatric care. At present patient denies auditory/visual hallucinations. No manic or depressive symtoms noted. Physical/Sexual Abuse/Trauma History: denies. Mental Status Exam - Mental Status Exam Alert and Oriented to: Time, Place, Person Cognitive Function: Good Patient Appearance: Well Groomed Mood: Withdrawn Affect: Mood Congruent Patient Behavior: Fatigued, Cooperative Speech Pattern: Clear Voice Loudness: Moderately Soft/Quiet Thought Process: Goal Oriented Thought Disorder: Not Present Hallucinations: Denies Suicidal Ideation: Denies Homicidal Ideation: Denies Insight/Judgement: Poor Sleep: Poorly Appetite: Fair Muscle strength/Tone: Normal Gait/Station: Normal Psychiatric Findings - Problem List ([place] 1, 2,3) (1) Alcohol dependence with withdrawal Current Visit: Yes Status: Acute Qualifiers: Complication of substance-induced condition: uncomplicated Qualified Code(s ): F10.230 - Alcohol dependence with withdrawal, uncomplicated (2) Bipolar disorder Current Visit: Yes Status: Chronic Comment: By history. (3) Cannabis dependence Current Visit: No Status: Chronic (4) Cocaine dependence Current Visit: Yes Status: Chronic (5) Schizoaffective disorder Current Visit: No Status: Suspected - Initial Treatment Plan Initial Treatment Plan: Psychoeducation provided. Detoxification in progress. Will order Abilify 10mg HS + Cogentin 0.5mg HS + Depakote 500mg BID. Will order Valproic acid level for 04/04/19. Benefits and side effects discussed. Verbal consent given.
[2019-04-03] MEDS: PRENATAL VITAMINS W/ FOLIC ACID TABLET (FP) PO SCH (10:16)
[2019-04-03] MEDS: NICOTINE 21 MG/24 HOURS TOPICAL PATCH TD SCH (10:16)
[2019-04-03] MEDS: DIVALPROEX SODIUM 500 MG TABLET E.C. PO SCH ×2 (10:18→21:51)
--- NOTE | 2019-04-03 13:37 | PN ---
[facility] CIWA - CIWA Score Nausea/Vomitin-No Nausea/No Vomiting Muscle Tremors: None Anxiety: 4-Mod. Anxious/Guarded Agitation: 1-Slight > Activity Paroxysmal Sweats: No Perspiration Orientation: 0-Oriented Tacttile Disturbances: 1-Very Mild Itch/Numbness Auditory Disturbances: 2-Mild Harshness/Frighten Visual Disturbances: 1-Very Mild Sensitivity Headache: 0-None Present CIWA-Ar Total Score: 9 BHS Progress Note (SOAP) Subjective: Body Aches, Anxious. Objective: PATIENT A & O X 3, OBSERVED AMBULATING ON UNIT UNASSISTED. IN NO ACUTE DISTRESS. 04/03/19 13:33 Vital Signs Temperature 96.7 F L 04/03/19 13:21 Pulse Rate 54 L 04/03/19 13:21 Respiratory Rate 18 04/03/19 13:21 Blood Pressure 123/80 04/03/19 13:21 O2 Sat by Pulse Oximetry (%) Laboratory Tests 04/02/19 04/02/19 14:00 14:00 WBC 4.5 RBC 4.48 Hgb 13.9 Hct 41.7 MCV 93.1 MCH 31.0 MCHC 33.3 RDW 14.7 Plt Count 218 D MPV 8.7 Sodium 142 Potassium 4.2 Chloride 108 H Carbon Dioxide 29 Anion Gap 5 L BUN 14.4 Creatinine 1.2 Est GFR (CKD-EPI)AfAm 81.80 Est GFR (CKD-EPI)NonAf 70.58 Random Glucose 106 Calcium 8.9 Total Bilirubin 0.2 AST 13 L ALT 25 Alkaline Phosphatase 69 Total Protein 6.5 Albumin 3.4 LABS NOTED. HIV, RPR RESULTS PENDING. 04/03/19 13:34 Assessment: 04/03/19 13:37 WITHDRAWAL SYMPTOMS. Plan: CONTINUE DETOX.
[2019-04-03] MEDS: LATANOPROST 0.005% OPHTH SOLN 2.5ML BOTTLE OU SCH (21:49)
[2019-04-03] MEDS: THIAMINE HCL 100 MG TABLET (FP) PO SCH (21:51)
[2019-04-03] MEDS: ARIPiprazole 10 MG TABLET PO SCH (21:51)
[2019-04-03] MEDS: BENZTROPINE MESYLATE 1 MG TABLET (FP) PO SCH (21:52)
[2019-04-04] MEDS: BRIMONIDINE TARTRATE 0.1% OPHTHALMIC 5 ML BOTTLE OU SCH ×3 (06:34→21:20)
[2019-04-04] MEDS: chlordiazePOXIDE HCL 25 MG CAPSULE PO SCH ×4 (06:34→22:19)
[2019-04-04] MEDS: DORZOLAMIDE 2% HCL OPHTHALMIC SOLUTION 10 ML BOTTLE OU SCH ×3 (06:34→21:20)
[2019-04-04] MEDS: NICOTINE 21 MG/24 HOURS TOPICAL PATCH TD SCH (10:17)
[2019-04-04] MEDS: DIVALPROEX SODIUM 500 MG TABLET E.C. PO SCH ×2 (10:17→21:19)
[2019-04-04] MEDS: PRENATAL VITAMINS W/ FOLIC ACID TABLET (FP) PO SCH (10:17)
[2019-04-04] MEDS: TIMOLOL 0.5% OPHTHALMIC SOL 5 ML BOTTLE OU SCH ×2 (10:21→21:21)
--- NOTE | 2019-04-04 10:46 | PN ---
S CIWA - CIWA Score Nausea/Vomitin-No Nausea/No Vomiting Muscle Tremors: 2 Anxiety: 1-Mildly Anxious Agitation: 2 Paroxysmal Sweats: 1-Minimal Palms Moist Orientation: 0-Oriented Tacttile Disturbances: 0-None Auditory Disturbances: 0-None Visual Disturbances: 0-None Headache: 0-None Present CIWA-Ar Total Score: 6 S Progress Note (SOAP) Subjective: 48 years old male admitted on 04/02/19 for acute alcohol withdrawal sx management doing well with libium detox protocol tolerate food and fluid well sleep better at night Objective: 04/04/19 10:47 Vital Signs Temperature 96.9 F L 04/04/19 09:25 Pulse Rate 54 L 04/04/19 09:25 Respiratory Rate 18 04/04/19 09:25 Blood Pressure 106/76 04/04/19 09:25 O2 Sat by Pulse Oximetry (%) Laboratory Last Values WBC 4.5 K/mm3 (4.0-10.0) 04/02/19 14:00 RBC 4.48 M/mm3 (4.00-5.60) 04/02/19 14:00 Hgb 13.9 GM/dL (11.7-16.9) 04/02/19 14:00 Hct 41.7 % (35.4-49) 04/02/19 14:00 MCV 93.1 fl (80-96) 04/02/19 14:00 MCH 31.0 pg (25.7-33.7) 04/02/19 14:00 MCHC 33.3 g/dl (32.0-35.9) 04/02/19 14:00 RDW 14.7 % (11.9-15.9) 04/02/19 14:00 Plt Count 218 K/MM3 (134-434) D 04/02/19 14:00 MPV 8.7 fl (7.5-11.1) 04/02/19 14:00 Sodium 142 mmol/L (136-145) 04/02/19 14:00 Potassium 4.2 mmol/L (3.5-5.1) 04/02/19 14:00 Chloride 108 mmol/L (98-107) H 04/02/19 14:00 Carbon Dioxide 29 mmol/L (21-32) 04/02/19 14:00 Anion Gap 5 MMOL/L (8-16) L 04/02/19 14:00 BUN 14.4 mg/dL (7-18) 04/02/19 14:00 Creatinine 1.2 mg/dL (0.55-1.3) 04/02/19 14:00 Est GFR (CKD-EPI)AfAm 81.80 04/02/19 14:00 Est GFR (CKD-EPI)NonAf 70.58 04/02/19 14:00 Random Glucose 106 mg/dL (74-106) 04/02/19 14:00 Calcium 8.9 mg/dL (8.5-10.1) 04/02/19 14:00 Total Bilirubin 0.2 mg/dL (0.2-1) 04/02/19 14:00 AST 13 U/L (15-37) L 04/02/19 14:00 ALT 25 U/L (13-61) 04/02/19 14:00 Alkaline Phosphatase 69 U/L (45-117) 04/02/19 14:00 Total Protein 6.5 g/dl (6.4-8.2) 04/02/19 14:00 Albumin 3.4 g/dl (3.4-5.0) 04/02/19 14:00 RPR Titer Nonreactive (NONREACTIVE) 04/02/19 14:00 HIV 1&2 Antibody Screen Negative 04/02/19 14:00 HIV P24 Antigen Negative 04/02/19 14:00 lab noted Assessment: 04/04/19 10:47 alcohol withdrawal sx Plan: continue alcohol detox
[2019-04-04 16:32] LABS: URINE APPEARANCE CLEAR; URINE BILIRUBIN NEGATIVE (NEGATIVE); URINE COLOR YELLOW; URINE GLUCOSE (UA) NEGATIVE (NEGATIVE); URINE KETONE NEGATIVE (NEGATIVE); URINE LEUK ESTERASE NEGATIVE (NEGATIVE); URINE NITRITE NEGATIVE (NEGATIVE); URINE PROTEIN NEGATIVE (NEGATIVE); URINE UROBILINOGEN 0.2 mg/dL (0.2-1.0)
[2019-04-04] MEDS: BENZTROPINE MESYLATE 1 MG TABLET (FP) PO SCH (21:19)
[2019-04-04] MEDS: ARIPiprazole 10 MG TABLET PO SCH (21:19)
[2019-04-04] MEDS: LATANOPROST 0.005% OPHTH SOLN 2.5ML BOTTLE OU SCH (21:20)
[2019-04-04] MEDS: THIAMINE HCL 100 MG TABLET (FP) PO SCH (21:22)
[2019-04-05] MEDS ORDERED: chlordiazePOXIDE HCL 10 MG CAPSULE PO PRN
[2019-04-05] MEDS: BRIMONIDINE TARTRATE 0.1% OPHTHALMIC 5 ML BOTTLE OU SCH ×2 (05:17→15:06)
[2019-04-05] MEDS: DORZOLAMIDE 2% HCL OPHTHALMIC SOLUTION 10 ML BOTTLE OU SCH ×2 (05:17→15:06)
[2019-04-05] MEDS: chlordiazePOXIDE HCL 10 MG CAPSULE PO SCH ×2 (05:17→10:15)
[2019-04-05] MEDS: PRENATAL VITAMINS W/ FOLIC ACID TABLET (FP) PO SCH (10:13)
[2019-04-05] MEDS: DIVALPROEX SODIUM 500 MG TABLET E.C. PO SCH (10:13)
[2019-04-05] MEDS: NICOTINE 21 MG/24 HOURS TOPICAL PATCH TD SCH (10:13)
[2019-04-05] MEDS: TIMOLOL 0.5% OPHTHALMIC SOL 5 ML BOTTLE OU SCH (10:15)
--- NOTE | 2019-04-05 10:56 | PN ---
[facility] CIWA - CIWA Score Nausea/Vomitin-No Nausea/No Vomiting Muscle Tremors: 1-None Visible, but [place] Anxiety: 1-Mildly Anxious Agitation: 1-Slight > Activity Paroxysmal Sweats: No Perspiration Orientation: 0-Oriented Tacttile Disturbances: 0-None Auditory Disturbances: 0-None Visual Disturbances: 0-None Headache: 0-None Present CIWA-Ar Total Score: 3 S Progress Note (SOAP) Subjective: hesitated to discuss aftercare with staff sleep on bed limited interaction with designer writer denies suicidal ideation denies depression new direction out patient service for alcohol recovery Objective: 04/05/19 10:55 Vital Signs Temperature 97.4 F L 04/05/19 09:31 Pulse Rate 59 L 04/05/19 09:31 Respiratory Rate 18 04/05/19 09:31 Blood Pressure 107/64 04/05/19 09:31 O2 Sat by Pulse Oximetry (%) Laboratory Last Values WBC 4.5 K/mm3 (4.0-10.0) 04/02/19 14:00 RBC 4.48 M/mm3 (4.00-5.60) 04/02/19 14:00 Hgb 13.9 GM/dL (11.7-16.9) 04/02/19 14:00 Hct 41.7 % (35.4-49) 04/02/19 14:00 MCV 93.1 fl (80-96) 04/02/19 14:00 MCH 31.0 pg (25.7-33.7) 04/02/19 14:00 MCHC 33.3 g/dl (32.0-35.9) 04/02/19 14:00 RDW 14.7 % (11.9-15.9) 04/02/19 14:00 Plt Count 218 K/MM3 (134-434) D 04/02/19 14:00 MPV 8.7 fl (7.5-11.1) 04/02/19 14:00 Sodium 142 mmol/L (136-145) 04/02/19 14:00 Potassium 4.2 mmol/L (3.5-5.1) 04/02/19 14:00 Chloride 108 mmol/L (98-107) H 04/02/19 14:00 Carbon Dioxide 29 mmol/L (21-32) 04/02/19 14:00 Anion Gap 5 MMOL/L (8-16) L 04/02/19 14:00 BUN 14.4 mg/dL (7-18) 04/02/19 14:00 Creatinine 1.2 mg/dL (0.55-1.3) 04/02/19 14:00 Est GFR (CKD-EPI)AfAm 81.80 04/02/19 14:00 Est GFR (CKD-EPI)NonAf 70.58 04/02/19 14:00 Random Glucose 106 mg/dL (74-106) 04/02/19 14:00 Calcium 8.9 mg/dL (8.5-10.1) 04/02/19 14:00 Total Bilirubin 0.2 mg/dL (0.2-1) 04/02/19 14:00 AST 13 U/L (15-37) L 04/02/19 14:00 ALT 25 U/L (13-61) 04/02/19 14:00 Alkaline Phosphatase 69 U/L (45-117) 04/02/19 14:00 Total Protein 6.5 g/dl (6.4-8.2) 04/02/19 14:00 Albumin 3.4 g/dl (3.4-5.0) 04/02/19 14:00 Urine Color Yellow 04/04/19 15:00 Urine Appearance Clear 04/04/19 15:00 Urine pH 8.0 (5.0-8.0) 04/04/19 15:00 Ur Specific [place] 1.013 (1.010-1.035) 04/04/19 15:00 Urine Protein Negative (NEGATIVE) 04/04/19 15:00 Urine Glucose (UA) Negative (NEGATIVE) 04/04/19 15:00 Urine Ketones Negative (NEGATIVE) 04/04/19 15:00 Urine Blood Negative (NEGATIVE) 04/04/19 15:00 Urine Nitrite Negative (NEGATIVE) 04/04/19 15:00 Urine Bilirubin Negative (NEGATIVE) 04/04/19 15:00 Urine Urobilinogen 0.2 mg/dL (0.2-1.0) 04/04/19 15:00 Ur Leukocyte Esterase Negative (NEGATIVE) 04/04/19 15:00 Valproic Acid 23.0 ug/ml (50-100) L 04/04/19 07:30 RPR Titer Nonreactive (NONREACTIVE) 04/02/19 14:00 HIV 1&2 Antibody Screen Negative 04/02/19 14:00 HIV P24 Antigen Negative 04/02/19 14:00 lab noted Assessment: 04/05/19 10:56 alcohol withdrawal sx Plan: continue alcohol detox
[2019-04-05 13:29] VITALS: BP 111/75; PULSE 60; TEMP 97.3
--- NOTE | 2019-04-05 15:42 | DS ---
[facility] Detox Discharge Summary Admission Date: 04/02/19 Discharge Date: 04/05/19 - History Present History: Alcohol Dependence Additional Comments: 48 years old male admitted on 04/02/19 for acute alcohol withdrawal sx management insists to leave the detox that he [facility] but not [facility]% bed available for him upon discharge on 04/07/19 patient is disappointed that possibility not to [facility] patient is alert oriented x 3 denies dizziness no shortness of breath "I do not need alcohol detox" patient skip few dosages of librium - Physical Exam Results Vital Signs: Vital Signs Temperature 97.3 F L 04/05/19 13:28 Pulse Rate 60 04/05/19 13:28 Respiratory Rate 18 04/05/19 13:28 Blood Pressure 111/75 04/05/19 13:28 O2 Sat by Pulse Oximetry (%) Pertinent Admission Physical Exam Findings: alcohol withdrawal sx Laboratory Last Values WBC 4.5 K/mm3 (4.0-10.0) 04/02/19 14:00 RBC 4.48 M/mm3 (4.00-5.60) 04/02/19 14:00 Hgb 13.9 GM/dL (11.7-16.9) 04/02/19 14:00 Hct 41.7 % (35.4-49) 04/02/19 14:00 MCV 93.1 fl (80-96) 04/02/19 14:00 MCH 31.0 pg (25.7-33.7) 04/02/19 14:00 MCHC 33.3 g/dl (32.0-35.9) 04/02/19 14:00 RDW 14.7 % (11.9-15.9) 04/02/19 14:00 Plt Count 218 K/MM3 (134-434) D 04/02/19 14:00 MPV 8.7 fl (7.5-11.1) 04/02/19 14:00 Sodium 142 mmol/L (136-145) 04/02/19 14:00 Potassium 4.2 mmol/L (3.5-5.1) 04/02/19 14:00 Chloride 108 mmol/L (98-107) H 04/02/19 14:00 Carbon Dioxide 29 mmol/L (21-32) 04/02/19 14:00 Anion Gap 5 MMOL/L (8-16) L 04/02/19 14:00 BUN 14.4 mg/dL (7-18) 04/02/19 14:00 Creatinine 1.2 mg/dL (0.55-1.3) 04/02/19 14:00 Est GFR (CKD-EPI)AfAm 81.80 04/02/19 14:00 Est GFR (CKD-EPI)NonAf 70.58 04/02/19 14:00 Random Glucose 106 mg/dL (74-106) 04/02/19 14:00 Calcium 8.9 mg/dL (8.5-10.1) 04/02/19 14:00 Total Bilirubin 0.2 mg/dL (0.2-1) 04/02/19 14:00 AST 13 U/L (15-37) L 04/02/19 14:00 ALT 25 U/L (13-61) 04/02/19 14:00 Alkaline Phosphatase 69 U/L (45-117) 04/02/19 14:00 Total Protein 6.5 g/dl (6.4-8.2) 04/02/19 14:00 Albumin 3.4 g/dl (3.4-5.0) 04/02/19 14:00 Urine Color Yellow 04/04/19 15:00 Urine Appearance Clear 04/04/19 15:00 Urine pH 8.0 (5.0-8.0) 04/04/19 15:00 Ur Specific [place] 1.013 (1.010-1.035) 04/04/19 15:00 Urine Protein Negative (NEGATIVE) 04/04/19 15:00 Urine Glucose (UA) Negative (NEGATIVE) 04/04/19 15:00 Urine Ketones Negative (NEGATIVE) 04/04/19 15:00 Urine Blood Negative (NEGATIVE) 04/04/19 15:00 Urine Nitrite Negative (NEGATIVE) 04/04/19 15:00 Urine Bilirubin Negative (NEGATIVE) 04/04/19 15:00 Urine Urobilinogen 0.2 mg/dL (0.2-1.0) 04/04/19 15:00 Ur Leukocyte Esterase Negative (NEGATIVE) 04/04/19 15:00 Valproic Acid 23.0 ug/ml (50-100) L 04/04/19 07:30 RPR Titer Nonreactive (NONREACTIVE) 04/02/19 14:00 HIV 1&2 Antibody Screen Negative 04/02/19 14:00 HIV P24 Antigen Negative 04/02/19 14:00 lab noted - Treatment Hospital Course: Detox Protocol Followed, Responded well Patient has Accepted a Rehab Referral to: [facility] - Medication Discharge Medications: Ambulatory Orders Dorzolamide HCl/Timolol Maleat [Cosopt Eye Drops] 5 ml OU TID 02/05/13 Aripiprazole [Abilify -] 10 mg PO DAILY #0 tablet 02/09/13 Benztropine Mesylate [Cogentin -] 0.5 mg PO DAILY #0 tablet 02/09/13 Brimonidine Tartrate [Alphagan P 0.1% -] 1 drop OU TID #0 drops 02/09/13 Latanoprost 0.005% Eye Drops [Xalatan 0.005% Eye Drops -] 1 drop OU HS #0 drops 02/09/13 Divalproex [Depakote -] 500 mg PO BID #60 tablet.ec 02/19/19 Brimonidine Tartrate [Alphagan P 0.1% -] 1 drop OU TID #1 drops 02/21/19 Dorzolamide HCl/Timolol Maleat [Cosopt Eye Drops] 1 drop OP BID #1 drops - Diagnosis (1) Alcohol dependence with withdrawal Current Visit: Yes Status: Acute Qualifiers: Complication of substance-induced condition: uncomplicated Qualified Code(s ): F10.230 - Alcohol dependence with withdrawal, uncomplicated (2) Glaucoma Current Visit: Yes Status: Chronic (3) Nicotine dependence Current Visit: Yes Status: Acute Qualifiers: Nicotine product type: cigarettes Substance use status: in withdrawal Qualified Code(s): F17.213 - Nicotine dependence, cigarettes, with withdrawal (4) PPD positive Current Visit: Yes Status: Resolved - AMA Did Patient Leave Against Medical Advice: Yes
[2019-04-06] MEDS ORDERED: chlordiazePOXIDE HCL 10 MG CAPSULE PO SCH (05:00)
[2019-04-07] MEDS ORDERED: chlordiazePOXIDE HCL 10 MG CAPSULE PO ONE (05:00)
== END 2019-04-05 15:36 | disposition left against medical advice (07) | DRG 770 ==
LOC: YASAS 12:03 → Y3N 14:58
PROVIDERS: ADMIT Surgery; ATTEND Surgery
PROC: HZ2ZZZZ Detoxification Services for Substance Abuse Treatment (ICD-10-PCS; principal; 2019-04-02)
DX: F10.230 Alcohol dependence with withdrawal, uncomplicated (principal); F14.20 Cocaine dependence, uncomplicated; F16.10 Hallucinogen abuse, uncomplicated; F12.10 Cannabis abuse, uncomplicated; F17.213 Nicotine dependence, cigarettes, with withdrawal; F31.9 Bipolar disorder, unspecified; H40.9 Unspecified glaucoma; R76.11 Nonspecific reaction to tuberculin skin test without active tuberculosis; Z86.2 Personal history of diseases of the blood and blood-forming organs and certain disorders involving the immune mechanism; Z88.0 Allergy status to penicillin; Z98.890 Other specified postprocedural states
CPT/HCPCS: 36415; 80053; 80164; 81003; 85027; 86593; 87389